=== PATIENT | female | born 1960 | race Asian ===

== ENCOUNTER 2020-06-20 10:58 | Day surgery (SDC) | payer BC, OTHER ==
[~2020-06-20] VITALS: Ht 160 cm; Wt 81.2 kg
[~2020-06-20 10:58] MED LIST: AVALIDE; CEPH500 PO; LEVOTHYROXINE; LEVSOD125 PO; LOSARTAN-HCTZ1 EACH PO; NAPR500 PO; SULTRISS PO
[2020-06-20] MEDS ORDERED: LEVSOD150 (11:09)
== END 2020-06-20 12:22 | disposition home or self-care (01) ==
LOC: ORSCSDS 10:58
PROVIDERS: Internal Medicine Gastroenterology
PROC: 0DJD8ZZ Inspection of Lower Intestinal Tract, Via Natural or Artificial Opening Endoscopic (ICD-10-PCS; principal; 2020-06-20 12:15)
DX: Z12.11 Encounter for screening for malignant neoplasm of colon (principal); Z86.010 Personal history of colon polyps; K57.30 Diverticulosis of large intestine without perforation or abscess without bleeding; K64.8 Other hemorrhoids; E03.9 Hypothyroidism, unspecified; E78.00 Pure hypercholesterolemia, unspecified; I10 Essential (primary) hypertension; Z79.899 Other long term (current) drug therapy
CPT/HCPCS: J2704; J7120

== ENCOUNTER → 2022-11-02 | Outpatient (CLI) | payer BC ==
[~2022-11-02] MED LIST changes: +LEVSOD150
[2022-11-04 12:15] LABS: HPV 16 Negative (Negative); HPV 18 Negative (Negative); HPV OTHER HR TYPES Negative (Negative)
== END | disposition home or self-care (01) ==
LOC: LAB 16:30 → LAB SHORT 16:30
PROVIDERS: Advanced Practice Midwife
DX: Z01.419 Encounter for gynecological examination (general) (routine) without abnormal findings (principal)
CPT/HCPCS: 87624; G0145